=== PATIENT | female | born 1965 | race Caucasian/White ===

== ENCOUNTER 2018-05-17 20:24 | Emergency (ER) | payer OTHER ==
[2018-05-17 21:00] VITALS: BP 134/85; PULSE 88; RESP 19; TEMP 98.6; O2SAT 98; BMI 29.2
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
--- NOTE | 2018-05-18 09:32 | US ---
PROCEDURE: Left lower extremity venous US HISTORY: Leg pain and swelling. Evaluate for DVT. PHYSICIAN(S): Ricki Salamanca MD. TECHNIQUE: Duplex sonography and color-flow Doppler with graded compression were used to evaluate the deep venous system of the left lower extremity. FINDINGS: The visualized deep venous system of the left lower extremity is sonographically normal and compressible. Normal wave forms and augmentation are seen. There is no sonographic evidence for deep venous thrombosis in the visualized segments of the left lower extremity. IMPRESSION: 1. No sonographic evidence for deep venous thrombosis in the visualized segments of the left lower extremity.
--- NOTE | 2018-05-18 11:47 | RAD ---
Date of service: 05/17/2018 PROCEDURE: Cervical Spine Radiographs. HISTORY: Pain. No history of recent/ related trauma provided COMPARISON: None available. FINDINGS: BONES: Alignment maintained. No fracture. Dens Intact. DISC SPACES: Normal. SOFT TISSUES: Normal. No prevertebral soft tissue swelling. OTHER FINDINGS: For calcifications within the neck at the level of the thyroid. These are of uncertain origin and etiology. IMPRESSION: No significant or acute findings to account for/ related to the clinical presentation.
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
== END 2018-05-17 23:12 | disposition home or self-care (01) ==
LOC: ED 20:24
DX: S83.92XA Sprain of unspecified site of left knee, initial encounter (principal); S80.02XA Contusion of left knee, initial encounter; V49.59XA Passenger injured in collision with other motor vehicles in traffic accident, initial encounter; Y92.410 Unspecified street and highway as the place of occurrence of the external cause